=== PATIENT | female | born 1960 | race Caucasian/White ===

== ENCOUNTER → 2017-03-16 | Outpatient (CLI) | payer BC | LOC: MC.RAD 13:23 | DX: Z12.31 Encounter for screening mammogram for malignant neoplasm of breast (principal) ==

== ENCOUNTER → 2018-04-14 | Outpatient (CLI) | payer BC | LOC: MC.RAD 07:40 | DX: Z12.31 Encounter for screening mammogram for malignant neoplasm of breast (principal) ==

== ENCOUNTER → 2019-08-06 | Outpatient (CLI) | payer BC | LOC: MC.RAD 14:02 | DX: Z12.31 Encounter for screening mammogram for malignant neoplasm of breast (principal) ==